=== PATIENT | female | born 1965 | race Caucasian/White ===

== ENCOUNTER 2016-08-09 22:10 | Inpatient (IN) | payer OTHER ==
[~2016-08-09 22:10] MED LIST: ACIPHEX20 MG PO; CIPRO500 MG PO; CYMBALTA60 M1 PO; DYAZIDE 37.5/251 CAP PO; ESTRACE1 M3 PO; LEXAPRO; LIPITOR10 MG PO; MULTIVITAMIN1 TAB; OXYCODONE/APAP PO; PRISTIQ50 MG PO
[2016-08-10 00:30] LABS: BASO % 0.2 % (0-2); EOS % 0.4 % (0-7); EOSINOPHIL ABSOLUTE COUNT 0.1 tho/cmm (0.0-0.7); HCT-HEMATOCRIT 41.7 % (34.0-49.0); HGB-HEMOGLOBIN 13.9 gm/dl (12.0-15.5); IMMATURE GRANULOCYTES ABSOLUTE 0.06 tho/cmm (0-0.03); IMMATURE GRANULOCYTES PERCENT 0.4 % (0-0.3); LYMPH % 7.7 % (20-45); LYMPH ABSOLUTE COUNT 1.3 tho/cmm (0.8-4.5); MCH (MEAN CORPUSCULAR HGB) 30.3 pg (28.0-32.0); MCHC MEAN CORPUSCULAR HGB CONC 33.3 % (32.0-36.0); MEAN PLATELET VOLUME 9.3 cmc (9.4-12.4); MONO % 6.9 % (0-12); MONOCYTE ABSOLUTE COUNT 1.2 tho/cmm (0.0-1.2); NEUTROPHILS % 84.4 % (40-80); PLATELET COUNT 326 tho/cmm (150-450); RED BLOOD COUNT 4.58 mil/cmm (4.00-5.20); RED CELL DISTRIBUTION WIDTH 14.5 % (12.4-16.4); WHITE BLOOD COUNT 16.6 tho/cmm (4.0-10.0)
[2016-08-10 00:52] LABS: ALBUMIN 3.8 g/dl (3.5-5.0); ALKALINE PHOSPHATASE 207 U/L (33-138); ALT/SGPT 445 U/L (12-78); ANION GAP 12 mmol/L (0-20); AST/SGOT 252 U/L (10-40); BILIRUBIN,TOTAL 1.9 mg/dl (0-1.5); BLOOD UREA NITROGEN 16 mg/dl (6-24); C-REACTIVE PROTEIN 0.4 mg/dl (0-0.9); CALCIUM 8.9 mg/dl (8.5-10.5); CARBON DIOXIDE-VENOUS 27 mmol/L (22-32); CHLORIDE 104 mmol/l (96-110); CREATININE 0.84 mg/dl (0.50-1.10); GLUCOSE 96 mg/dL (70-110); LIPASE 242 U/L (73-393); POTASSIUM 3.1 mmol/L (3.7-5.1); SODIUM 140 mmol/L (135-145); eGFR VALUE FOR BLACK >90 mL/Min
[2016-08-10] MEDS ORDERED: OMEPRAZOLE40 M2 PO (03:37)
[2016-08-10 03:46] LABS: INR 1.1 INR (0.9-1.1); PROTHROMBIN TIME 12.3 SECONDS (9.0-13.6)
[2016-08-10 04:16] LABS: PROCALCITONIN 0.08 ng/ml (0.05-0.09)
[2016-08-10] MEDS ORDERED: NORCO 5-325 TA1 EACH PO (14:44)
[2016-08-10] MEDS ORDERED: IBUPROFEN200 M3 PO (14:45)
[2016-08-11 04:47] LABS: BASO % 0.2 % (0-2); EOS % 0.3 % (0-7); HCT-HEMATOCRIT 36.2 % (34.0-49.0); HGB-HEMOGLOBIN 11.7 gm/dl (12.0-15.5); IMMATURE GRANULOCYTES ABSOLUTE 0.03 tho/cmm (0-0.03); IMMATURE GRANULOCYTES PERCENT 0.3 % (0-0.3); MCHC MEAN CORPUSCULAR HGB CONC 32.3 % (32.0-36.0); MCV (MEAN CELL VOLUME) 92.8 fl (82.0-96.0); MEAN PLATELET VOLUME 9.3 cmc (9.4-12.4); MONO % 6.3 % (0-12); MONOCYTE ABSOLUTE COUNT 0.7 tho/cmm (0.0-1.2); NEUTROPHIL ABSOLUTE COUNT 9.3 tho/cmm (1.6-8.0); NEUTROPHIL-AUTOMATED 9.3 tho/cmm (1.6-8.0); NEUTROPHILS % 83.9 % (40-80); PLATELET COUNT 271 tho/cmm (150-450); WHITE BLOOD COUNT 11.1 tho/cmm (4.0-10.0)
[2016-08-11 05:01] LABS: ALB/GLOB RATIO 1.1 (0.8-2.0); ALBUMIN 2.9 g/dl (3.5-5.0); ALKALINE PHOSPHATASE 140 U/L (33-138); ALT/SGPT 279 U/L (12-78); ANION GAP 10 mmol/L (0-20); BLOOD UREA NITROGEN 10 mg/dl (6-24); CALCIUM 8.4 mg/dl (8.5-10.5); CARBON DIOXIDE-VENOUS 27 mmol/L (22-32); CHLORIDE 110 mmol/l (96-110); CREATININE 0.65 mg/dl (0.50-1.10); GLUCOSE 108 mg/dL (70-110); MAGNESIUM 2.4 mg/dl (1.3-2.6); POTASSIUM 3.8 mmol/L (3.7-5.1); SODIUM 143 mmol/L (135-145); eGFR VALUE FOR BLACK >90 mL/Min
[2016-08-11 05:06] LABS: BILIRUBIN,TOTAL 0.5 mg/dl (0-1.5)
[2016-08-11 05:07] LABS: AST/SGOT 121 U/L (10-40)
--- NOTE | 2016-08-11 10:58 | NUR ---
VIRTUAL CARE NOTE: PT DRESSED READY FOR DISCHARGE INSTRUCTIONS,INFORMATION GIVEN TO PT. PT DENIES QUESTIONS OR CONCENRS. INFORMED FLOOR NURSE DISCHARGE TEACHING DONE.
== END 2016-08-11 11:30 | DRG 419 ==
LOC: EDMED 22:10 → EMR2 08-10 01:53 → 5WD 08-10 02:50 → ORW 08-10 11:40 → 5WD 08-10 14:00
PROVIDERS: Emergency Medicine; Internal Medicine; Registered Nurse; ADMIT Hospitalist
PROC: 0FT44ZZ Resection of Gallbladder, Percutaneous Endoscopic Approach (ICD-10-PCS; principal; 2016-08-10)
PROC: BF121ZZ Fluoroscopy of Gallbladder using Low Osmolar Contrast (ICD-10-PCS; 2016-08-10)
DX: K80.00 Calculus of gallbladder with acute cholecystitis without obstruction (principal); I10 Essential (primary) hypertension; F41.9 Anxiety disorder, unspecified; E78.5 Hyperlipidemia, unspecified; F32.9 Major depressive disorder, single episode, unspecified; D72.829 Elevated white blood cell count, unspecified; R79.89 Other specified abnormal findings of blood chemistry
CPT/HCPCS: J1335; J2405; J3480; J7030; J7050; Q9966